=== PATIENT | female | born 1960 | race Two or more races ===

== ENCOUNTER 2018-10-18 21:00 | Emergency (ER) | payer SELFPAY ==
[~2018-10-18] VITALS: Ht 154.9 cm; Wt 93.4 kg
[2018-10-18 21:09] VITALS: BP 176/111
== END 2018-10-18 22:11 | disposition left against medical advice (07) ==
LOC: ER 21:00 → EDBD 21:00 → ER 22:11
DX: R07.89 Other chest pain (principal); Z53.21 Procedure and treatment not carried out due to patient leaving prior to being seen by health care provider; R51 Headache; V49.49XA Driver injured in collision with other motor vehicles in traffic accident, initial encounter; Y93.89 Activity, other specified; Y99.8 Other external cause status; Y92.410 Unspecified street and highway as the place of occurrence of the external cause
CPT/HCPCS: 71046; 72125; 74176; 93005